=== PATIENT | male | born 1960 | race Caucasian/White ===

== ENCOUNTER 2016-10-21 17:02 | Emergency (ER) | payer OTHER ==
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
== END 2016-10-21 18:12 | disposition home or self-care (01) ==
LOC: ER 17:02
DX: S61.211A Laceration without foreign body of left index finger without damage to nail, initial encounter (principal); W26.0XXA Contact with knife, initial encounter; Y92.89 Other specified places as the place of occurrence of the external cause
CPT/HCPCS: 12044; 99283

== ENCOUNTER 2016-10-31 10:24 | Emergency (ER) | payer OTHER ==
--- NOTE | 2016-10-31 10:52 | ER NURSING DOCUMENTATION ---
Nurse's Notes [facility] Name:Pola De Luna Age:56 yrs Sex:Male :1960 Arrival Date:10/31/2016 Time:10:24 BedTriage Private MD:Ezekiel Payne Diagnosis:Suture Removal Presentation: 10/31 10:41 Acuity: ANIL 4 st 10:41 Presenting complaint: Patient states: pt is hear for suture removal from left thumb. st 10:48 Transition of care: Home. st 10:48 Method Of Arrival: Private Vehicle st Assessment: 10:49 General: pt has no complaints. . st Vital Signs: 10:49 BP 161 / 103; Pulse 76; Temp 99.1; Pulse Ox 95% on R/A; st 10:49 pt has been drinking coffie. st ED Course: 10:32 Patient arrived in ED. ds 10:32 Ezekiel Payne MD is Private Physician. ds 10:41 Felecia Zeng RN is Primary Nurse. st 10:[address] 10:49 Removed sutures from dorsal aspect of proximal phalanx of left thumb Suture site is st healing well one area gaped a little after sutures were removed. two steri strips placed. Administered Medications: No medications were administered Outcome: 10:50 Discharged to home ambulatory. st 10:50 Condition: improved 10:50 Discharge instructions given to patient, Instructed on wound care. 10:51 Discharge ordered by MD. st 10:51 Patient left the ED. st 11:09 No charge visit due to suture removal. st Signatures: Felecia Zeng RN RN st Abdullahi, Meagan, Reg Reg ds
== END 2016-10-31 10:52 | disposition home or self-care (01) ==
LOC: ER 10:24
DX: Z48.02 Encounter for removal of sutures (principal); S61.211D Laceration without foreign body of left index finger without damage to nail, subsequent encounter